=== PATIENT | male | born 1960 | race Caucasian/White ===

== ENCOUNTER 2017-01-24 06:17 | Day surgery (SDC) | payer OTHER ==
--- NOTE | ~2017-01-24 | OP ---
Record Of Operation [facility] [address] [place]. [address] NAME: NICHOLE BELTRAN : 64 STATUS : [facility]#: [id number] AGE: 56 ADM/REG DATE : 01/24/17 MR#: [id number] REPORT SERV DATE: 01/24/17 DICTATED BY: VIC CARRINGTON DATE: 01/24/17 REPORT STATUS : Draft TRANSCRIBED BY: MODL DATE: 01/24/17 DATE OF PROCEDURE: 01/24/2017 PREOPERATIVE DIAGNOSIS: Subcutaneous perineal cyst. POSTOPERATIVE DIAGNOSIS: Subcutaneous perineal cyst. PROCEDURE: Excision of perineal cyst. SURGEON: Vic Carrington M.D. DESCRIPTION OF OPERATIVE PROCEDURE: The patient was brought to the operating suite, placed in supine position, underwent satisfactory general endotracheal anesthesia without incident. The patient was then rolled into prone position with appropriate padding placed. The skin of the perineum was scrubbed, prepped, and draped in usual sterile fashion. 0.5% Marcaine with epinephrine was utilized as supplemental local anesthesia. An incision was made in the median raphe, dissecting through skin and subcutaneous tissue to the palpable cyst. It contains "creamy" material and that was cultured, then the cyst was excised from the surrounding subcutaneous tissue and hemostasis was assured. The wound was irrigated and closed in 2 layers, subcutaneously with interrupted 3-0 Vicryl, running subcuticular stitch of 4-0 Vicryl for the skin. Dermabond skin adhesive placed. The patient tolerated the procedure well and was returned to PACU in stable condition. At termination of procedure sponge, needle, lap, and instrument counts were correct x3. ESTIMATED BLOOD LOSS: Negligible. WR/MIKE Vic Carrington M.D. / [id number] CC: Cody Quiroga MD
[~2017-01-24 06:17] MED LIST: CHOLESTEROL PO; HTN PO; PROTONIX PO
[2017-01-24 06:45] LABS: HEMATOCRIT 46.9 % (40.0-51.0); HEMOGLOBIN 16.4 g/dL (13.6-17.8)
[2017-01-24 06:59] LABS: BUN (BLOOD UREA NITROGEN) 11 MG/DL (6-23); CALCIUM, SERUM 9.1 MG/DL (8.5-10.4); CHLORIDE, SERUM 108 MMOL/L (96-112); CO2 (CARBON DIOXIDE) 29 MMOL/L (24-34); CREATININE 1.03 MG/DL (0.70-1.30); GFR AFRICAN AMERICAN 95 ML/MIN (>=60); GFR NON AFRICAN AMERICAN 82 ML/MIN (>=60); GLUCOSE, SERUM 100 MG/DL (60-99); POTASSIUM, SERUM 4.2 MMOL/L (3.5-5.3); SODIUM, SERUM 140 MMOL/L (135-148)
== END 2017-01-24 19:11 | disposition home or self-care (01) ==
LOC: SDC 06:17
PROVIDERS: Specialist
PROC: 0JBB0ZZ Excision of Perineum Subcutaneous Tissue and Fascia, Open Approach (ICD-10-PCS; 2017-01-24)
PROC: 0HQ9XZZ Repair Perineum Skin, External Approach (ICD-10-PCS; principal; 2017-01-24 07:45)
DX: L02.215 Cutaneous abscess of perineum (principal); I10 Essential (primary) hypertension; E78.00 Pure hypercholesterolemia, unspecified; K21.9 Gastro-esophageal reflux disease without esophagitis; F17.210 Nicotine dependence, cigarettes, uncomplicated; Z79.899 Other long term (current) drug therapy; Z98.890 Other specified postprocedural states
CPT/HCPCS: 80048; 85014; 85018; 87015; 87070; 87075; 87077; 87102; 87116; 87186; 87205; 88305; 93005; A9270-GY; J0690; J1170; J2250; J2270; J2405; J2710; J3010